=== PATIENT | female | born 1965 | race Hispanic/Latino ===

== ENCOUNTER 2020-12-29 14:26 | Emergency (ER) | payer SELFPAY ==
--- NOTE | ~2020-12-29 | XR_ITS ---
XR ankle LT min 3V, XR foot LT min 3V 12/29/2020 15:15 (accession [id number]), 12/29/2020 15:16 (accession [id number]) Indication: Left ankle and foot pain Procedure: 4 views of the left ankle and 4 views left foot Comparison: No prior studies for comparison. Findings: No fracture, subluxation or dislocation. Ankle mortise intact. Talar dome within normal boyce its. No focal soft tissue abnormality. No foreign bodies. Osteopenia. Lisfranc joint intact. Small de generative calcaneal enthesophyte. Impression: 1: No acute fracture. Reviewed, dictated and finalized at location A. Impression: 1: No acute fracture. Impression: 1: No acute fracture.
--- NOTE | ~2020-12-29 | US_ITS ---
US venous doppler [facility] DATE: 12/29/2020 18:52 INDICATION: Left leg swelling TECHNIQUE: Real-time and color flow imaging and Doppler analysis of the veins of the left leg COMPARISON: None FINDINGS: There is spontaneous and phasic flow and normal augmentation and color flow signal of the d eep veins of the left lower extremity. Normal compression of the deep veins. Left greater saphenous v ein is patent. IMPRESSION: No evidence of deep venous thrombosis of the left leg Reviewed, dictated and finalized at Location [facility]. Reviewed, dictated and finalized at location A.
[2020-12-29 14:58] VITALS: BP 128/99; PULSE 87; RESP 20; TEMP 36.8; O2SAT 98
--- NOTE | 2020-12-29 16:12 | ED.GENADULT ---
HPI - General Adult General Chief complaint: Extremity Injury, Lower Stated complaint: L ANKLE PAIN X4D Time Seen by Provider: 12/29/20 15:44 Source: patient Limitations: language barrier History of Present Illness HPI narrative: Patient is a 55 y/o female complaining of left ankle pain starting about 4 days ago. She rates her pain as 6/10. There is no pain radiation. She states that weight bearing worsens her pain. She hit her left 4th toe about 2 weeks ago, but did not have any cuts or scratches. Of note, patient is non Romanian speaking and interview is done with rn staff. Related Data Allergies Allergy/AdvReac Type Severity Reaction Status Date / Time No Known Allergies Allergy Unverified 12/29/20 15:25 Review of Systems Review of Systems: All systems reviewed & are unremarkable except as noted in HPI and below Musculoskeletal: Musculoskeletal: Reports as per HPI and Reports other (left ankle pain) [facility] Social History Social History Gender identity (if verbalized by the patient): Female Exam Const: General: no acute distress and well developed Orientation/consciousness: oriented to person, oriented to place, oriented to time and patient oriented x3 HENMT: Head: normocephalic Ears: external ears normal General nose exam: Normal external nose present Eyes: General: appearance normal, both eyes and all related structures Conjunctivae: conjunctivae normal Neck: Neck: normal visual inspection and full ROM Chest: Chest palpation & inspection: normal inspection of the chest and no tenderness Resp: Effort & Inspection: normal respiratory effort Auscultation: clear to auscultation bilaterally Cardio: Rate: regular rate Rhythm: regular rhythm GI: GI Palp: No abdominal tenderness and Yes Soft to palpation Skin: General skin exam: normal color, turgor normal and erythema (lateral apsect of left ankle) Neuro: General: oriented to person, oriented to place, oriented to time and patient oriented x3 Cognition (Neuro): normal cognition Extrem: General: normal to inspection, full ROM and no pedal edema Psych: Appearance: grossly normal Mental Status: mental status grossly normal Affect: normal affect Course Vital Signs Vital signs: Vital Signs Temperature 36.8 C 12/29/20 14:58 Pulse Rate 87 12/29/20 14:58 Respiratory Rate 20 12/29/20 14:58 Blood Pressure 128/99 H 12/29/20 14:58 Pulse Oximetry 98 12/29/20 14:58 Temperature 36.8 C 12/29/20 14:58 Pulse Rate 76 12/29/20 19:05 Respiratory Rate 18 12/29/20 19:05 Blood Pressure 162/89 H 12/29/20 19:05 Pulse Oximetry 100 12/29/20 19:05 Medical Decision Making Vital Signs Vital Signs: Vital Signs Temperature 36.8 C 12/29/20 14:58 Pulse Rate 87 12/29/20 14:58 Respiratory Rate 20 12/29/20 14:58 Blood Pressure 128/99 H 12/29/20 14:58 Pulse Oximetry 98 12/29/20 14:58 Temperature 36.8 C 12/29/20 14:58 Pulse Rate 76 12/29/20 19:05 Respiratory Rate 18 12/29/20 19:05 Blood Pressure 162/89 H 12/29/20 19:05 Pulse Oximetry 100 12/29/20 19:05 Lab Data Result diagrams: 12/29/20 17:03 12/29/20 17:03 Labs: Lab Results 12/29/20 12/29/20 12/29/20 Range/Units 17:03 17:03 17:03 WBC 4.1 L (4.5-10.0) K/mm3 RBC 4.48 (4.2-5.4) M/mm3 Hgb 11.4 L (12.0-15.0) g/dL Hct 36.4 L (37.0-47.0) % MCV 81.3 (80-100) fl MCH 25.4 L (26-34) pg MCHC 31.3 L (32-36) g/dl RDW 16.6 H (11.5-14.5) % Plt Count 327 (150-375) k/mm3 MPV 10.3 (7.4-10.4) fl Immature Gran % (Auto) 0.5 (0-0.5) % Neut % (Auto) 49.0 (45.5-73.1) % Lymph % (Auto) 33.7 (18.3-44.2) % [place] % (Auto) 14.3 H (2.6-8.5) % Eos % (Auto) 2.0 (0-4.4) % Baso % (Auto) 0.5 (0.2-1.2) % Lymph # (Auto) 1.37 (0.9-3.2) K/mm3 [place] # (Auto) 0.6 (0.1-0.6) K/mm3 Eos # (Auto) 0.1 (0-0.3) K/mm3
[2020-12-29 17:23] LABS: Basophils Percent Auto 0.5 % (0.2-1.2); Eosinophils Absolute Auto 0.1 K/mm3 (0-0.3); Hematocrit 36.4 % (37.0-47.0); Hemoglobin 11.4 g/dL (12.0-15.0); Immature Granulocyte Absolute 0.02 K/mm3 (0.00-0.031); Immature Granulocyte Percent A 0.5 % (0-0.5); Lymphocytes Absolute Auto 1.37 K/mm3 (0.9-3.2); Lymphocytes Percent Auto 33.7 % (18.3-44.2); Mean Corpuscular HGB Conc 31.3 g/dl (32-36); Mean Corpuscular Hemoglobin 25.4 pg (26-34); Mean Corpuscular Volume 81.3 fl (80-100); Mean Platelet Volume 10.3 fl (7.4-10.4); Monocytes Absolute Auto 0.6 K/mm3 (0.1-0.6); Monocytes Percent Auto 14.3 % (2.6-8.5); Platelet Count Result 327 k/mm3 (150-375); Red Blood Count 4.48 M/mm3 (4.2-5.4); Red Cell Distribution Width 16.6 % (11.5-14.5); White Blood Count 4.1 K/mm3 (4.5-10.0)
[2020-12-29 17:32] LABS: Uric Acid 3.1 mg/dL (2.5-7.5)
[2020-12-29 17:33] LABS: Anion Gap 10 mmol/L (8-16); Blood Urea Nitrogen 18 mg/dL (7-17); Calcium 9.2 mg/dL (8.4-10.2); Carbon Dioxide 28 mmol/L (22-30); Chloride 100 mmol/L (98-107); Estimated Glomerular Filt Rate > 60; Glucose 97 mg/dL (65-110); Sodium 138 mmol/L (137-145)
[2020-12-29] MEDS: KETOROLAC 15 MG/ML VIAL (*BKC) IV PUSH (18:00)
[2020-12-29 19:05] VITALS: BP 162/89; PULSE 76; RESP 18; O2SAT 100
== END 2020-12-29 20:19 | disposition home or self-care (01) ==
PROVIDERS: Emergency Provider Emergency Medicine
DX: L03.116 Cellulitis of left lower limb (principal)
CPT/HCPCS: 36415; 73610; 73630; 80048; 84550; 85025; 87040; 93971; 96365; 96375; 99284; J1885; J3370

== ENCOUNTER 2022-03-04 19:18 | Emergency (ER) | payer SELFPAY ==
[2022-03-04 19:21] VITALS: BP 167/91; PULSE 87; RESP 18; TEMP 36.2; O2SAT 100
[2022-03-04] MEDS: diphenhydrAMINE HCl INJ 50 MG/ML VIAL IV PUSH (20:36)
[2022-03-04] MEDS: FAMOTIDINE 20 MG/2 ML VIAL IV PUSH (20:36)
[2022-03-04] MEDS: methylPREDNISolone SOD SUCC 125 MG VIAL IV PUSH (20:36)
--- NOTE | 2022-03-04 21:04 | ED.SKABFB ---
HPI - Skin/Abscess/Foreign Bdy General Chief complaint: Skin/Abscess/Foreign Body Stated complaint: rash Time Seen by Provider: 03/04/22 20:14 History of Present Illness HPI narrative: This is a 56-year-old female with past medical history of rheumatoid arthritis, who presents emergency department complaining of urticaria. She states the only difference today was that she drank a can spiced coffee. She denies previous allergic reactions. She denies other new soaps, lotions, detergents. She complains of some hoarseness and presence of rash on the abdomen and chest. She denies difficulty breathing, vomiting, diarrhea or loss of consciousness. Related Data Allergies Allergy/AdvReac Type Severity Reaction Status Date / Time No Known Allergies Allergy Verified 03/04/22 20:12 Review of Systems Review of Systems: CONSTITUTIONAL: Denies fever, chills, or sweats. EYES: Denies visual changes, redness, or discharge. ENT: Hoarse voice denies rhinorrhea, congestion, sore throat, or otalgia. CARDIOVASCULAR: Denies chest pain, palpitations, or edema. RESPIRATORY: Denies cough or dyspnea. GASTROINTESTINAL: Denies abdominal pain, nausea, vomiting, or diarrhea. GENITOURINARY: Denies dysuria or hematuria. SKIN: Rash, itching MUSCULOSKELETAL: Denies back pain, joint pain, or myalgia. NEUROLOGIC: Denies headache, numbness, dizziness, or weakness. PSYCHIATRIC: Denies anxiety or depression. [facility] Past Medical History Medical History (Updated 03/05/22 @ 00:00 by Carin Delaney) Rheumatoid arthritis Social History Social History (Updated 03/04/22 @ 21:09 by Jovanni Valencia MD) Smoking status: Never smoker Alcohol intake: never Substance use: never Gender identity (if verbalized by the patient): Female Exam Narrative: GENERAL: Well-developed, well-nourished, and in no acute distress. HEAD: Normocephalic, atraumatic. EYES: PERRLA and EOMI. ENT: Somewhat hoarse voice, nares clear, no rhinorrhea or epistaxis. Mucous membranes moist. Oropharynx without swelling, tonsillar hypertrophy, exudate or other lesions. NECK: Supple. No adenopathy or masses. No carotid bruits or JVD CHEST: Clear to auscultation. No respiratory distress. No wheezes rales or rhonchi HEART: Regular rate and rhythm. No murmur heard. Normal peripheral pulses. ABDOMEN: Soft, nontender, nondistended, normal active bowel sounds. EXTREMITIES: Normal range of motion. No edema. SKIN: Urticarial rash noted over the abdomen and chest wall NEURO: No focal deficits. Alert and oriented x3. PSYCH: Normal mood and affect. Course Course Emergency Course: 21:42 - Reassessed patient, urticaria has significantly improved. The patient feels better. 22:28 - Reassessed patient. Urticaria appears to have resolved. Discussed recommendations for course of antihistamines and steroids. Discussed return emergency cautions including signs/symptoms of anaphylaxis. The patient voiced understanding is with the plan. All questions answered to her satisfaction. Vital Signs Vital signs: Vital Signs Temperature 97.2 F L 03/04/22 19:21 Pulse Rate 87 03/04/22 19:21 Respiratory Rate 18 03/04/22 19:21 Blood Pressure 167/91 H 03/04/22 19:21 Pulse Oximetry 100 03/04/22 19:21 Oxygen Delivery Room Air 03/04/22 19:21 Temperature 97.2 F L 03/04/22 19:21 Pulse Rate 81 03/04/22 21:54 Respiratory Rate 14 03/04/22 21:54 Blood Pressure 147/80 H 03/04/22 21:54 Pulse Oximetry 100 03/04/22 21:54 Oxygen Delivery Room Air 03/04/22 19:21 MDM - Skin/Abscess/Foreign Bdy MDM Narrative Medical decision making narrative: Plan: Antihistamines, steroids, observation Differential Diagnosis Differential diagnosis: Likely urticaria and other (Allergic reaction, other) Discharge Plan Discharge Clinical Impression: Urticaria Patient Disposition: Home, Self-Care Condition: Improved Instructions: Antibiotic Form, Urticaria (ED) Additional
[2022-03-04] MEDS: ACETAMINOPHEN 500 MG TABLET 1000 MG PO (21:47)
[2022-03-04 21:54] VITALS: BP 147/80; PULSE 81; RESP 14; O2SAT 100
== END 2022-03-04 22:54 | disposition home or self-care (01) ==
PROVIDERS: Emergency Provider Preventive Medicine Aerospace Medicine
DX: L50.9 Urticaria, unspecified (principal); M06.9 Rheumatoid arthritis, unspecified
CPT/HCPCS: 96374; 96375; 99284; A9270; J1200; J2930

== ENCOUNTER 2022-03-07 10:48 | Emergency (ER) | payer SELFPAY ==
[2022-03-07 11:20] VITALS: BP 154/85; PULSE 85; RESP 14; TEMP 36.8; O2SAT 99
--- NOTE | 2022-03-07 12:42 | ED.SKABFB ---
HPI - Skin/Abscess/Foreign Bdy General Chief complaint: Skin/Abscess/Foreign Body Stated complaint: rash Time Seen by Provider: 03/07/22 11:48 History of Present Illness HPI narrative: 56-year-old female here for evaluation of a diffuse rash. Patient states the rash came on about 5 days ago without obvious trigger. No new soaps medications or detergents or medications. States the rash is pruritic in nature, began with a patch on her stomach and has since spread to her back and the rest of her chest. She was seen in the ED and was given a course of steroids and Benadryl, did initially improve the symptoms but they have since come back. Patient denies any fevers, chills, painful rash, involvement of mucous membranes, difficulty breathing, throat tightness. Related Data Allergies Allergy/AdvReac Type Severity Reaction Status Date / Time No Known Allergies Allergy Verified 03/04/22 20:12 Review of Systems Review of Systems: Gen.: Denies fevers or chills Eyes: Denies eye pain or visual change ENT: Denies congestion Respiratory: Denies shortness of breath or cough CV: Denies chest pain or palpitations GI: Denies abdominal pain nausea, emesis or diarrhea denies burning, urgency, frequency or hematuria Musculoskeletal: Denies back pain or muscle pain Neuro: Denies numbness, tingling, weakness or focal weakness Skin: Reports rash Except as documented, all other systems reviewed and negative PMFSH Past Medical History Medical History Rheumatoid arthritis Social History Social History (Updated 03/04/22 @ 21:09 by Jovanni Valencia MD) Smoking status: Never smoker Alcohol intake: never Substance use: never Gender identity (if verbalized by the patient): Female Exam Narrative: APPEARANCE: Well appearing, no pain in distress, well-nourished. Head: Normocephalic and atraumatic. EYES: No irritation of the conjunctivo-. PERRLA/EOMI, conjunctivae clear NOSE: No nasal drainage EARS: External ear normal in appearance THROAT: Oropharynx is clear. Mucous membranes are moist. NECK: Supple. No adenopathy, no masses. RESPIRATORY: Airway patent, respirations nonlabored. Clear to auscultation bilaterally, no rales, rhonchi, wheezing. CARDIOVASCULAR: Regular rate and rhythm without murmurs, rubs, or gallops. ABDOMINAL: Normoactive bowel sounds. Soft, nontender, nondistended. No rebound tenderness or guarding. MUSCULOSKELETAL: Extremities are warm and well-perfused. Moves all extremities well. No edema. NEURO: Normal speech. No focal neurologic deficits. SKIN: Patient has numerous macules in a Victor[place] tree distribution on her back, maculopapular rash to abdomen. PSYCHIATRIC: Normal affect/mood. Course Vital Signs Vital signs: Vital Signs Temperature 98.2 F 03/07/22 11:20 Pulse Rate 85 03/07/22 11:20 Respiratory Rate 14 03/07/22 11:20 Blood Pressure 154/85 H 03/07/22 11:20 Pulse Oximetry 99 03/07/22 11:20 Temperature 98.2 F 03/07/22 11:20 Pulse Rate 85 03/07/22 11:20 Respiratory Rate 14 03/07/22 11:20 Blood Pressure 154/85 H 03/07/22 11:20 Pulse Oximetry 99 03/07/22 11:20 MDM - Skin/Abscess/Foreign Bdy MDM Narrative Medical decision making narrative: 56-year-old female here for evaluation of a pruritic rash that started on her anterior trunk and has since spread to her back, appears to be in a characteristic [place] tree pattern consistent with pitryiasis rosea. The rash is not painful and she has no involvement of the mucous membranes to suggest SJS or TENS. She has no systemic symptoms, and no difficulty breathing to suggest anaphylaxis. She previously responded to the prednisone so we will reinitiate steroid therapy and encouraged to continue Benadryl and Pepcid as needed for symptoms. She was given a pediatric nurse practitioner to follow-up with to confirm diagnosis. Patient was given reasons to return to the ED and she voi
[2022-03-07] MEDS: diphenhydrAMINE HCl CAP 25 MG CAPSULE PO (12:58)
[2022-03-07] MEDS: FAMOTIDINE 20 MG TABLET 40 MG PO (12:59)
== END 2022-03-07 13:15 | disposition home or self-care (01) ==
PROVIDERS: Emergency Provider Emergency Medicine
DX: L42 Pityriasis rosea (principal); M06.9 Rheumatoid arthritis, unspecified
CPT/HCPCS: 96372; 99283; A9270; J1100

== ENCOUNTER 2024-10-05 10:56 | Emergency (ER) | payer SELFPAY ==
[2024-10-05 10:58] VITALS: BP 159/74; PULSE 88; RESP 18; TEMP 36.6; O2SAT 100
--- OUTSIDE RECORDS SUMMARY | 2024-10-05 10:59 | XMS_ITS | Encounter Summary ---
Author Organization [facility] Healthcare Address [address] [place] [address] Care Team Providers Care State Federal Relations Deputy Director Name Role Phone No, Physician Primary Care Provider [phone] Khushbu Gutierres MD Unavailable Encounter Details Date Type Department Care Team (Late st Contact Info) Description 02/22/2023 Orders Only [facility] Health Information Management [address] [place] [address] Scanning, Provider Social History Tobacco Use Types Packs/Day Years Used Date Smoking Tobacco: Former Cigarettes 0.3 20 1 979 - 1998 Smokeless Tobacco: Never Alcohol Use Standard Drinks/Week Comments Not Currently 0 (1 standard drink = 0.6 oz pur e alcohol) AUDIT-C Answer Date Recorded Frequency of Alcohol Consumption Never 01/29/2020 Average Number of Drinks Not on file 020 Frequency of Binge Drinking Not on file 01/14 Comments No Sex and Gender Information Value Date Recorded Sex Assigned at Not on file 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 Gender Identity Not on file Sexual Orientation Not on file documented as of this encounter Plan of Treatment Not on file documented as of this encounter Procedures Procedure Name Priority Date/Time Associated Diagnosis Comments SCAN - OTHER ORDERS 02/22/2023 documented in this encounter Results * SCAN - OTHER ORDERS (02/22/2023) us Provider Scanning Final Result documented in this encounter Visit Diagnoses Not on filedocumented in this encounter Care Teams State Federal Relations Deputy Director Relationship Specialty Start Date End Date No, Physician PCP - General 08/25/18 Khushbu Gutierres MD 06/02/18 documented as of this encounter
--- OUTSIDE RECORDS SUMMARY | 2024-10-05 10:59 | XMS_ITS | Clinical Summary ---
Author Organization [facility] Address [address] [place] [address] Care Team Providers Care Silver Lap Machine Tender Name Role Phone de Gregory De La Vega Unavailable Unknown, Provider Primary Care Provider Unavaila ble Source Comments [facility],non-owned Affiliates and Associated Physician Practices is amultiple site organization consisting of ambulatory clinics and hospital sitesin [place], [place] and [place]. This disclosure is being madepursuant to the Care Everywhere program and may not contain all information available regarding this patient. Last updated 18.[facility] VerbalizeIt Allergies No known active allergies Medications * Be aware that medications may not be up to date on this document. Alwaysverify current medications with the patient. lisinopril (Prinivil; Zestril) 20 MG tablet TOME EDDIE TABLETA POR V A ORAL A DIARIO 3 Active hydroxychloroqu ine (Plaquenil) 200 MG tablet Take 1 (one) tablet by mouth once daily 3 Active polyethylene glycol (Gavilyte-C) 240 g solution Drink half of prep solution at 5pm the night before colonoscopy. Finish the prep at 4am the day of test. 4000 mL 3 Active Additional Information Patient not taking.Reported on 04/10/2024 esomeprazole (NexIUM) 20 MG capsule Take 1 (one) capsule by mouth daily before breakfast Active ciclopirox (Penlac) 8 % solutionIndicat ions:Onychomyco sis of Toenails Apply to nail daily, remove with nail divehi remover every 7 days. 30 days supply. Reasons: Fungal Toenail Disease 6.6 mL 5 4 Active Active Problems Problem Noted Date Diagnosed Date Localized chronic periodontitis 04/09/2024 Long-term use of Plaquenil 09/18/2018 Overview (04/09/2024): Last Assessment & Plan: Letter to corn shucker. Rheumatoid arthritis 09/18/2018 Overview (04/09/2024): Last Assessment & Plan: On plaquenil x 5 years. No e/o plaquenil related toxicity on dilated eye exam today. OCT 5 line macula was normal without ellipsoid zone loss, normal HVF 10-2 today. Return for DFE and repeat OCT and HVF annually per AAO guidelines. Letter to corn shucker today. Social History Tobacco Use Types Packs/Day Years Used Date Smoking Tobacco: Never Smokeless Tobacco: Never Tobacco Cessation:Counseling Given: Not Answered Alcohol Use Standard Drinks/Week Comments Not Currently 0 (1 standard drink = 0.6 oz pur e alcohol) Comments No Sex and Gender Information Value Date Recorded Sex Assigned at Not on file Legal Sex Female 8:30 AM CDT Gender Identity Not on file Sexual Orientation Not on file Last Filed Vital Signs Vital Sign Reading Time Taken Comments Blood Pressure 155/94 04/22/2023 12:30 PM ASBESTOS SIDING INSTALLER Pulse 68 04/22/2023 12:30 PM ASBESTOS SIDING INSTALLER Temperature 36.6 C (97.8 F) 04/22/2023 12:30 PM ASBESTOS SIDING INSTALLER Respiratory Rate 26 04/22/2023 12:3 0 PM ASBESTOS SIDING INSTALLER Oxygen Saturation 99% 04/22/2023 12: 30 PM ASBESTOS SIDING INSTALLER Inhaled Oxygen Concentration - - Weight 77.4 kg (170 lb 11.2 oz) 04/22/2023 9:32 AM ASBESTOS SIDING INSTALLER Height 167.6 cm (5' 6 ) 04/22/2023 9:32 AM ASBESTOS SIDING INSTALLER Body Mass Index 27.55 04/22/2023 9:32 AM ASBESTOS SIDING INSTALLER Plan of Treatment Upcoming Encounters Date Type Department Care Team (Late st Contact Info) Description 10/09/2024 1:30 PM CDT Office Visit [facility] - Dermatology [address] [place] [address] [place] [id number] Samuel Chaney PA-C [address] [place] [address] 11/27/2024 2:15 PM CDT Office Visit [facility] - Ophthalmology [address] [place] [address], [place] [address] Walter Powell MD [address] [place] [address] DE[place] [address] Health Maintenance Due Date Last Done Comments COLOGUARD (AGES 45-75) - COLON CA SCREENING 1965 CT COLONOGRAPHY - COLON CA SCREENING 1965 FIT - COLON CA SCREENING 1965 FLEX SIG - COLON CA SCREENING 1965 LIPID TESTING 1965 PAP SMEAR 1963 HIV SCREENING 1978 HEPATITIS C SCREENING 05/05/1981 DTAP/TDAP/TD VACCINES (1 - Tdap) 1982 PNEUMOCOCCAL VACCINE 50+ (1 of 1 - PCV) 2013 ZOSTER VACCINE (1 of 2) 2013 COVID-19 VACCINE (3 - season) 2024 08/20/2020, 07/23/2020 SCREENING FOR DIABETES 04/10/2024 08/27/2014 DEPRESSION SCREENING 05/16/2024 INFLUENZA VACCINE (Season Ended) 2025 MAMMOGRAM 06/21/2025 06/21/2023, 02/10/2023, 05/29/2021, Additional history exists COLON MONITORING 04/22/2033 04/22/2023, 04/22/2023 COLONOSCOPY - COLON CA SCREENING 04/22/2033 04/22/2023, 04/22/2023 Colorectal Cancer Screening 04/22/2033 Respiratory Syncytial Virus (RSV) Vaccine Pt: or over 60 yrs (1 - 1-dose 75+ series) 2038 HEPATITIS B VACCINE Aged Out No longe r eligible based on patient's age to complete this topic HIB VACCINE Aged Out No longer eligi ble based on patient's age to complete this topic HPV VACCINE Aged Out No longer eligi ble based on patient's age to complete this topic MENINGOCOCCAL (Group B) VACCINE SHARED DECISION-MAKING Aged Out No longer eligible based on patient's age to complete this topic MENINGOCOCCAL GROUPS A/C/Y/W VACCINE Aged Out No longer eligible based on patient's age to complete this topic Procedures Procedure Name Priority Date/Time Associated Diagnosis Comments ENDOSCOPY, COLON, SCREENING Routine 04/22/2023 11:14 AM ASBESTOS SIDING INSTALLER MAMMO BILAT SCREENING Routine 04/20/2017 10:40 AM ASBESTOS SIDING INSTALLER Visit for screening mammogram COMPREHENSIVE METABOLIC PANEL STAT 08/27/2014 2:21 PM CDT from Last 3 Months or Most Recently Relevant to Health Maintenance Results * ENDOSCOPY, COLON, SCREENING (04/22/2023 11:14 AM ASBESTOS SIDING INSTALLER) Report Endoscopy POC Endoscopy Department Report __ _ Patient Name: Kaylin Amin Procedure Date: 04/22/2023 11:14 AM Date of : 1965 Classification: Outpatient Gender: Female Ethnicity: or Race: White __ _ Providers: Hussain Melvin MD Referring MD: Gregory Renae Procedure: Colonoscopy Indications: Screening for colorectal malignant neoplasm, This is the patient's first colonoscopy Medications: Monitored Anesthesia Care Description of Procedure: Pre-Anesthesia Assessment: - Prior to the procedure, a History and Physical was performed, and patient medications and allergies were reviewed. The patient's tolerance of previous anesthesia was also reviewed. The risks and benefits of the procedure and the sedation options and risks were discussed with the patient. All questions were answered, and informed consent was obtained. Prior Anticoagulants: The patient has taken no anticoagulant or antiplatelet agents. ASA Grade Assessment: II - A patient with mild systemic disease. After reviewing the risks and benefits, the patient was deemed in satisfactory condition to undergo the procedure. After I obtained informed consent, the scope was passed under direct vision. Throughout the procedure, the patient's blood pressure, pulse, and oxygen saturations were monitored continuously. The Colonoscope was introduced through the anus and advanced to the cecum, identified by appendiceal orifice and ileocecal valve. The colonoscopy was performed without difficulty. The patient tolerated the procedure well. The quality of the bowel preparation was excellent. Findings: Two diminutivve polyps were found in the rectum. The polyps were 2 to 3 mm in size and may be hyyperplastic. These polyps were removed with a jumbo cold forceps. Resection and retrieval were complete. No other significant abnormalities were identified in a careful examination of the remainder of the colon. No mass or large polyps seen. Internal hemorrhoids were found during retroflexion. The hemorrhoids were small. Estimated Blood Loss: Estimated blood loss was minimal. Complications: No immediate complications. Impression: - Two 2 to 3 mm polyps in the rectum, removed with a jumbo cold forceps. Resected and retrieved. - Internal hemorrhoids. Recommendation: - Await pathology results. - Repeat colonoscopy in 7-10 years for surveillance. - Return to referring physician as previously scheduled. - Resume previous diet. - Continue present medications. Attending Participation: I personally performed the entire procedure. Procedure Code(s): --- Professional --- 66535, Colonoscopy, flexible; with biopsy, single or multiple Diagnosis Code(s): --- Professional --- Z12.11, Encounter for screening for malignant neoplasm of colon D12.8, Benign neoplasm of rectum K64.8, Other hemorrhoids CPT copyright 2021 [employer]. All rights reserved. The codes documented in this report are preliminary and upon material assistant review may be revised to meet current compliance requirements. Hussain Melvin MD 04/22/2023 12:11:21 PM Note Initiated On: 04/22/2023 11:14 AM Number of Addenda: 0 [facility] [address] [place] [address] [facility] [employer] 04/22/2023 11:1 4 AM ASBESTOS SIDING INSTALLER us Hussain Melvin MD GI PROCEDURE ORDERABLES Edite d Result - Final [facility] [employer] * CHAMP SCREENING DIGITAL IMAGE BILATERAL G0202 (04/20/2017 10:40 AM ASBESTOS SIDING INSTALLER) Anatomical Region Laterality Modality Breast Bilateral Mammography 04/25/2017 9:03 AM ASBESTOS SIDING INSTALLER Impressions 04/25/2017 10:33 AM ASBESTOS SIDING INSTALLER No mammographic evidence of malignancy in either breast. ASSESSMENT: BIRADS Category 1: Negative mammogram. RECOMMENDATION: Bilateral screening mammogram in one year. Thank you for allowing us to participate in the care of your patient. [facility] Breast [facility] utilizes [employer] as a reminder system to notify patients of their next recommended mammogram. I, Nelly Saldivar, have personally reviewed the images and I agree with this report. Narrative 04/25/2017 10:33 AM ASBESTOS SIDING INSTALLER EXAMINATION: Digital screening mammogram on 04/20/2017. Low-dose full-field digital breast tomosynthesis examination was performed with synthetic 2D images and 3D acquisitions. Computer assisted detection was utilized. PRIOR: Prior mammogram dated 11/18/2015. BREAST PARENCHYMAL DENSITY: The breasts are heterogeneously dense, which may obscure small masses. RISK ASSESSMENT CALCULATION: Based on the information provided by your patient, her lifetime risk of breast cancer is average (<15%). Additional quantitative risk model data and patient history details have been scanned as a document/letter in [facility] electronic medical record (media tab). Please note this information is only as accurate as the data entered by the patient. FINDINGS: No suspicious masses, areas of architectural distortion or microcalcifications are evident on synthetic 2D mammogram or tomosynthesis images. There has been no significant interval change since the prior examination. us Ester Brennan MD MAMMO ORDERABLES Final Resu lt * (ABNORMAL) COMPREHENSIVE METABOLIC PANEL (08/27/2014 2:21 PM CDT) BUN 11 7 - 26 mg/dL [facility] Creatinine 0.5(L) 0.6 - 1.2 mg/dL [facility] Sodium 142 136 - 145 mmol/L [facility] Potassium 3.4(L) 3.5 - 4.5 mmol/L [facility] Chloride 103 98 - 107 mmol/L [facility] CO2 24 22 - 29 mmol/L [facility] Glucose 84 70 - 115 mg/dL [facility] Calcium 9.9 8.4 - 10.2 mg/dL [facility] Protein Total 9.4(H) 6.0 - 8.3 g/dL [facility] Albumin 4.0 3.4 - 5.0 g/dL [facility] Bilirubin Total 0.8 0.2 - 1.2 mg/dL [facility] Alkaline Phosphatase 88 40 - 150 Units/L [facility] ALT 22 0 - 55 Units/L [facility] AST 24 5 - 34 Units/L [facility] Anion Gap 18 8 - 18 [facility] BUN/Creatinine Ratio 22 7 - 23 [facility] Osmolality Calculated 278 270 - 300 mOsm/kg [facility] Albumin/Globulin Ratio 0.7(L) 1.1 - 2.3 [facility] eGFR >60 >60 mL/min/1.7 3 m2 [facility] Blood specimen (specimen) BLOOD SPECIMEN / Unknown 08/27/2014 2:21 PM CDT 08/27/2014 2:26 PM CDT us Sharon Swenson MD LAB - CHEMISTRY ORDERABLES Final Result [facility] [address] [place], [place] [address] [phone] from Last 3 Months or Most Recently Relevant to Health Maintenance Care Teams Silver Lap Machine Tender Relationship Specialty Start Date End Date Unknown, Provider PCP - General 04/10/24 de Yolette, [facility] [address] [place] [address] Creative Designer 04/20/17
--- OUTSIDE RECORDS SUMMARY | 2024-10-05 10:59 | XMS_ITS | Clinical Summary ---
Author Organization [facility] Healthcare Address [address] [place] [address] Care Team Providers Care Waxing Machine Operator Helper Name Role Phone No, Physician Primary Care Provider [phone] Khushbu Gutierres MD Unavailable Allergies No known active allergies Medications predniSONE (DELTASONE) 2.5 mg tabletIndicatio ns:autoimmune disease Take 2.5 mg by mouth daily before breakfast Active hydroxychloroqu ine (PLAQUENIL) 200 mg tabletIndicatio ns:Systemic Lupus Erythematosus,R A Take 200 mg by mouth daily Active esomeprazole DR (NexIUM) 40 mg capsuleIndicati ons:Treatment of Non-Bleeding Gastric Disorder Take 40 mg by mouth 2 (two) times a day Active acetaminophen (TYLENOL) 500 mg tablet Take 500 mg by mouth every 6 (six) hours as needed for pain Active psyllium husk (METAMUCIL ORAL) Take 1 Dose by mouth daily as needed Active cyanocobalamin (Vitamin B-12) 1,000 mcg sublingual tablet Take 1,000 mcg by mouth daily before breakfast Active oxyCODONE (ROXICODONE) 5 mg immediate release tabletIndicatio ns:Pain Take 1 tablet (5 mg total) by mouth every 4 (four) hours as needed for pain for up to 8 doses 8 tablet 9 Active Active Problems Problem Noted Date Diagnosed Date Rheumatoid arthritis 09/18/2018 Assessment & Plan (01/29/2020 4:26 PM CDT): On plaquenil x 5 years. No e/o plaquenil related toxicity on dilated eye exam today. OCT 5 line macula was normal without ellipsoid zone loss, normal HVF 10-2 today. Return for DFE and repeat OCT and HVF annually per AAO guidelines. Letter to production engineer track today. Assessment & Plan (09/18/2018 4:09 PM CDT): On plaquenil x 4 years. Patient has two MRN's so this chart needs to be merged with her existing chart. No e/o plaquenil related toxicity on dilated eye exam today. OCT 5 line macula was normal without ellipsoid zone loss today. Will get updated HVF 10-2 at next visit in 1 year, at which time we will repeat OCT and HVF annually per AAO guidelines. Long-term use of Plaquenil 09/18/2018 Assessment & Plan (09/18/2018 4:09 PM CDT): Letter to production engineer track. Cataract, nuclear sclerotic, both eyes 9 Assessment & Plan (01/29/2020 4:26 PM CDT): NVS, follow Assessment & Plan (09/18/2018 4:09 PM CDT): NVS, SRx given. Mammogram abnormal 07/17/2018 Resolved Problems Problem Noted Date Diagnosed Date Resolved Date Drusen of macula, right 09/18/201801/14 Assessment & Plan (09/18/2018 4:12 PM CDT): Nasal to fovea, not concerning for plaquenil related maculopathy. Follow. Surgical History Surgery Date Site/Laterality Comments HYSTERECTOMY HYSTERECTOMY Medical History Medical History Date Comments Frequent headaches Lupus Rheumatoid arthritis (HCC) Family History Medical History Relation Name Comments Anesthesia problems Neg Hx Social History Tobacco Use Types Packs/Day Years [...] on file Legal Sex Female 9:18 AM SPECIAL SERVICE REPRESENTATIVE Gender Identity Not on file Sexual Orientation Not on file Obstetrics History Last Filed Vital Signs Vital Sign Reading Time Taken Comments Blood Pressure 162/86 08/24/2018 3:20 PM CDT Pulse 68 08/24/2018 3:20 PM CDT Temperature 36.7 C (98.1 F) 08/24/2018 2:40 PM CDT Respiratory Rate 13 08/24/2018 7:05 AM CDT Oxygen Saturation 99% 08/24/2018 3:20 PM CDT Inhaled Oxygen Concentration - - Weight 76.7 kg (169 lb) 09/06/2018 3:45 PM CDT Height 171.5 cm (5' 7.5 ) 08/18/2018 1:00 PM CDT Body Mass Index 26.08 08/18/2018 1:00 PM CDT Plan of Treatment Health Maintenance Due Date Last Done Comments Colon Cancer Screening-Colonoscopy 1965 Depression Screening 1965 Hepatitis C Screening 1965 DTaP/Tdap/Td Vaccine (1 - Tdap) 1974 Hepatitis B Screening 1981 Regular Well Visit/Exam 18-64 1981 Pneumococcal vaccine <65 (1 of 2 - PCV) 1982 Zoster Vaccine (1 of 2) 1982 Covid-19 Vaccine (4 - 2023-2 5 season) 2024 08/14/2021, 08/20/2020, 07/23/2020 Breast Cancer Screening-Mammogram 06/21/2024 06/21/2023, 05/29/2021, 05/30/2020, Additional history exists Influenza Vaccine (Season Ended) 2025 03/07/20 20 Procedures Procedure Name Priority Date/Time Associated Diagnosis Comments SCREENING MAMMOGRAM BILATERAL W TEO Schedule Routine, Read Routine (OP Routine) 06/21/2023 10:20 AM SPECIAL SERVICE REPRESENTATIVE Screening mammogram, encounter for from Last 3 Months or Most Recently Relevant to Health Maintenance Results * Screening Mammogram Bilateral W Teo (06/21/2023 10:20 AM SPECIAL SERVICE REPRESENTATIVE) Anatomical Region Laterality Modality Breast Bilateral Mammography Narrative 06/22/2023 11:30 AM SPECIAL SERVICE REPRESENTATIVE Mammogram Technique: Bilateral Digital Breast Tomosynthesis, Bilateral C-view 2D Screening mammogram. Views obtained: bilateral craniocaudal and bilateral mediolateral oblique. Computer Aided Detection was performed. Mammogram Findings: The present examination has been compared to prior imaging studies performed at [facility] on 06/12/2019, 05/30/2020 and 05/29/2021. There are scattered areas of fibroglandular density. There is no suspicious abnormality in either breast. Impression: There is no mammographic evidence of malignancy. Annual screening mammography is recommended. OVERALL FINAL ASSESSMENT: BI-RADS CATEGORY 1: Negative. Procedure Note Dimple Nguyen MD - 06/22/2023 Mammogram Technique: Bilateral Digital Breast Tomosynthesis, Bilateral C-view 2D Screening mammogram. Views obtained: bilateral craniocaudal and bilateral mediolateral oblique. Computer Aided Detection was performed. Mammogram Findings: The present examination has been compared to prior imaging studies performed at [facility] on06/12/2019, 05/30/2020 and 05/29/2021. There are scattered areas of fibroglandular density. There is no suspicious abnormality in either breast. Impression: There is no mammographic evidence of malignancy. Annual screening mammography is recommended. OVERALL FINAL ASSESSMENT: BI-RADS CATEGORY 1: Negative. us Self Screening Mammogram IMG MAMMO PROCEDURES Fi nal Result from Last 3 Months or Most Recently Relevant to Health Maintenance Care Teams Waxing Machine Operator Helper Relationship Specialty Start Date End Date No, Physician PCP - General 08/25/18 Khushbu Gutierres MD 06/02/18
--- OUTSIDE RECORDS SUMMARY | 2024-10-05 10:59 | XMS_ITS | Patient Health Record ---
Author Organization [facility] Address [address] [place], [place] [address] Care Team Providers Care Oil Well Engineer Name Role Phone Magda Miya Primary Care Provider [phone] Allergies No Known Allergies Reason For Referral No Information Immunizations Vaccine Route Administration Date Status Comme nts SARS-COV-2 (COVID-19) Vaccine 100mcg/0.5mL IM Intramuscular 07/23/2020 Administered SARS-COV-2 (COVID-19) Vaccine 100mcg/0.5mL IM Intramuscular 08/20/2020 Administered Social History Sex Assigned At : Social History Observation Description Sex Assigned At Female Problems Problem Type SNOMED Code ICD Code Onset Dates Problem Status W/U Status Risk Notes Problem Localized chronic periodontitis (585177312) Chronic periodontitis , localized, severe (K05.313) Active confirmed Problem Encounter for dental exam and cleaning w/o abnormal findings (Z01.20) Active confirmed Plan Of Treatment No Information Insurance Providers Payer Name Payer Address Payer Phone Subscriber Number Group Number Insured Name Patient Relationship to Insured Coverage Start Date Coverage End Date Self Pay - Slide Fee (Inacti ve 2022) LEVEL B Kaylin Coelho Self - patient is the insured 2021 Medical (General) History Medical History History ICD Code SLE ( approved by specialist ) letter pr ovided entered at the [employer]
--- OUTSIDE RECORDS SUMMARY | 2024-10-05 10:59 | XMS_ITS | Referral Summary ---
Author Organization [facility] Healthcare Address [address] [place] [address] Care Team Providers Care Psychometrician Name Role Phone No, Physician Primary Care Provider [phone] Khushbu Gutierres MD Unavailable Allergies No known [...] HVF annually per AAO guidelines. Letter to school standards coach today. Assessment & Plan (09/18/2018 4:09 PM [...] Plan (09/18/2018 4:09 PM CDT): Letter to school standards coach. Cataract, nuclear sclerotic, both eyes 9 Assessment & Plan (01/29/2020 4:26 PM CDT): NVS, follow Assessment & Plan (09/18/2018 4:09 PM CDT): NVS, SRx given. Mammogram abnormal 07/17/2018 Resolved Problems Problem Noted Date Diagnosed Date Resolved Date Drusen of macula, right 09/18/201801/14 Assessment & Plan (09/18/2018 4:12 PM CDT): Nasal to fovea, not concerning for plaquenil related maculopathy. Follow. Social History Tobacco Use Types Packs/Day Years [...] on file Legal Sex Female 9:18 AM SURGICAL COORDINATOR Gender Identity Not on file Sexual Orientation [...] 08/18/2018 1:00 PM CDT Plan of Treatment Not on file Procedures Procedure Name Priority Date/Time Associated Diagnosis Comments SCREENING MAMMOGRAM BILATERAL W TEO Schedule Routine, Read Routine (OP Routine) 06/21/2023 10:20 AM SURGICAL COORDINATOR Screening mammogram, encounter for from Last 3 Months or Most Recently Relevant to Health Maintenance Results * Screening Mammogram Bilateral W Teo (06/21/2023 10:20 AM SURGICAL COORDINATOR) Anatomical Region Laterality Modality Breast Bilateral Mammography Narrative 06/22/2023 11:30 AM SURGICAL COORDINATOR Mammogram Technique: Bilateral Digital Breast Tomosynthesis, Bilateral C-view 2D Screening mammogram. Views obtained: bilateral craniocaudal and bilateral mediolateral oblique. Computer Aided Detection was performed. Mammogram Findings: The present examination has been compared to prior imaging studies performed at [facility] on 06/12/2019, 05/30/2020 [...] compared to prior imaging studies performed at [facility] on06/12/2019, 05/30/2020 and [...] Recently Relevant to Health Maintenance Care Teams Psychometrician Relationship Specialty Start Date End Date No, Physician PCP - General 08/25/18 hKushbu Gutierres MD 06/02/18
--- OUTSIDE RECORDS SUMMARY | 2024-10-05 10:59 | XMS_ITS | Clinical Summary ---
Author Organization [facility] Address [address] [place] [address] Phone Care Team Providers Care Head Pastry Chef Name Role Phone Unavailable Primary Care Provider Unavailabl e Allergies No known active allergies Medications HYDROXYCHLOROQUI NE SULFATE (PLAQUENIL ORAL) Take by mouth. Active calcium acetate (PHOSLO) 667 mg Capsule Take 667 mg by mouth 3 times daily with meals. Active predniSONE (DELTASONE) 1 mg tablet Take 1 mg by mouth daily. Active omeprazole (PriLOSEC) 20 mg Capsule, Delayed Release(E.C.) Take 20 mg by mouth daily. Active esomeprazole (NexIUM) 20 mg Capsule, Delayed Release(E.C.) Take 20 mg by mouth daily before breakfast. Active Social History Tobacco Use Types Packs/Day Years Used Date Smoking Tobacco: Never Alcohol Use Standard Drinks/Week Comments No 0 (1 standard drink = 0.6 oz pur e alcohol) Comments Unknown Sex and Gender Information Value Date Recorded Sex Assigned at Not on file Legal Sex Female 9:26 AM CDT Gender Identity Not on file Sexual Orientation Not on file Last Filed Vital Signs Vital Sign Reading Time Taken Comments Blood Pressure 116/75 12/12/2015 2:29 PM CDT Pulse 89 12/12/2015 2:29 PM CDT Temperature 37.3 C (99.2 F) 12/12/2015 2:17 PM CDT Respiratory Rate 20 12/12/2015 2:29 PM CDT Oxygen Saturation 98% 12/12/2015 2:29 PM CDT Inhaled Oxygen Concentration - - Weight 57.6 kg (127 lb) 12/12/2015 1:00 PM CDT Height 170.2 cm (5' 7 ) 12/12/2015 1:00 PM CDT Body Mass Index 19.89 12/12/2015 1:00 PM CDT Plan of Treatment Health Maintenance Due Date Last Done Comments DTAP/TDAP/TD VACCINES (1 - Tdap) 1982 HPV/Cotest (21-29) 1984 CERVICAL CANCER SCREENING 1993 HPV/Cotest (30-65) 1993 PAP SMEAR 1993 BREAST CANCER SCREENING 2003 COLORECTAL SCREENING 2008 Colorectal Cancer Screening 2008 FIT-DNA Q 3 years 2008 FIT/FOBT Q 1 year 2008 Flex Sig/CT Colonography Q 5 years 2008 ZOSTER VACCINE (1 of 2) 2013 INFLUENZA VACCINE (#1) 2023 RSV VACCINE (60+ or ) (1 - 1-dose 75+ series) 2038 Advance Directives For more information, please contact: [phone] * Full Code (Latest Code Status on File) Date Activated Date Inactivated Comments 12/12/2015 12:59 PM 12/12/2015 4:47 PM
--- OUTSIDE RECORDS SUMMARY | 2024-10-05 12:44 | XMS_ITS | Referral Summary ---
Author Organization [facility] Healthcare Address [address] [place] [address] Care Team Providers Care Spoke Maker Name Role Phone No, Physician Primary Care Provider [phone] Khushbu Gutierres MD Unavailable Allergies No known [...] HVF annually per AAO guidelines. Letter to special population paraprofessional today. Assessment & Plan (09/18/2018 4:09 PM [...] Plan (09/18/2018 4:09 PM CDT): Letter to special population paraprofessional. Cataract, nuclear sclerotic, both eyes 9 Assessment [...] on file Legal Sex Female 9:18 AM SOFT SUGAR SUPERVISOR Gender Identity Not on file Sexual Orientation [...] Read Routine (OP Routine) 06/21/2023 10:20 AM SOFT SUGAR SUPERVISOR Screening mammogram, encounter for from Last 3 Months or Most Recently Relevant to Health Maintenance Results * Screening Mammogram Bilateral W Teo (06/21/2023 10:20 AM SOFT SUGAR SUPERVISOR) Anatomical Region Laterality Modality Breast Bilateral Mammography Narrative 06/22/2023 11:30 AM SOFT SUGAR SUPERVISOR Mammogram Technique: Bilateral Digital Breast Tomosynthesis, Bilateral C-view 2D Screening mammogram. Views obtained: bilateral craniocaudal and bilateral mediolateral oblique. Computer Aided Detection was performed. Mammogram Findings: The present examination has been compared to prior imaging studies performed at [facility] on 06/12/2019, 05/30/2020 and [...] to prior imaging studies performed at [facility] on06/12/2019, 05/30/2020 and 05/29/2021. [...] Recently Relevant to Health Maintenance Care Teams Spoke Maker Relationship Specialty Start Date End Date No, Physician PCP - General 08/25/18 Khushbu Gutierres MD 06/02/18
--- OUTSIDE RECORDS SUMMARY | 2024-10-05 12:44 | XMS_ITS | Clinical Summary ---
Author Organization [facility] Healthcare Address [address] [place] [address] Care Team Providers Care Timber Treatment Plant Operator Name Role Phone No, Physician Primary Care Provider [phone] Khushbu Gutierres MD Unavailable Allergies No known [...] HVF annually per AAO guidelines. Letter to vice president lending today. Assessment & Plan (09/18/2018 4:09 PM [...] Plan (09/18/2018 4:09 PM CDT): Letter to vice president lending. Cataract, nuclear sclerotic, both eyes 9 Assessment [...] on file Legal Sex Female 9:18 AM BLUE PRINTS TRIMMER Gender Identity Not on file Sexual Orientation [...] Read Routine (OP Routine) 06/21/2023 10:20 AM BLUE PRINTS TRIMMER Screening mammogram, encounter for from Last 3 Months or Most Recently Relevant to Health Maintenance Results * Screening Mammogram Bilateral W Teo (06/21/2023 10:20 AM BLUE PRINTS TRIMMER) Anatomical Region Laterality Modality Breast Bilateral Mammography Narrative 06/22/2023 11:30 AM BLUE PRINTS TRIMMER Mammogram Technique: Bilateral Digital Breast Tomosynthesis, Bilateral C-view 2D Screening mammogram. Views obtained: bilateral craniocaudal and bilateral mediolateral oblique. Computer Aided Detection was performed. Mammogram Findings: The present examination has been compared to prior imaging studies performed at [facility] on 06/12/2019, 05/30/2020 [...] compared to prior imaging studies performed at [facility] on06/12/2019, 05/30/2020 and [...] Recently Relevant to Health Maintenance Care Teams Timber Treatment Plant Operator Relationship Specialty Start Date End Date No, Physician PCP - General 08/25/18 Khushbu Gutierres MD 06/02/18
--- OUTSIDE RECORDS SUMMARY | 2024-10-05 12:44 | XMS_ITS | Clinical Summary ---
Author Organization [facility] Address [address] [place] [address] Care Team Providers Care Technology Officer Name Role Phone de Gregory De La Vega Unavailable Unknown, Provider Primary Care Provider Unavaila ble Source Comments [facility],non-owned Affiliates and Associated Physician Practices is amultiple site organization consisting of ambulatory clinics and hospital sitesin [place], [place], [place] and [place]. This disclosure is being madepursuant to the Care Everywhere program and may not contain all information available regarding this patient. Last updated 18.[facility] [employer] Allergies No known active allergies Medications * [...] Apply to nail daily, remove with nail english remover every 7 days. 30 days supply. Reasons: Fungal Toenail Disease 6.6 mL 5 4 Active Active Problems Problem Noted Date Diagnosed Date Localized chronic periodontitis 04/09/2024 Long-term use of Plaquenil 09/18/2018 Overview (04/09/2024): Last Assessment & Plan: Letter to associate brand manager. Rheumatoid arthritis 09/18/2018 Overview (04/09/2024): Last Assessment & Plan: On plaquenil x 5 years. No e/o plaquenil related toxicity on dilated eye exam today. OCT 5 line macula was normal without ellipsoid zone loss, normal HVF 10-2 today. Return for DFE and repeat OCT and HVF annually per AAO guidelines. Letter to associate brand manager today. Social History Tobacco Use Types Packs/Day [...] Comments Blood Pressure 155/94 04/22/2023 12:30 PM ENGLISH PROFESSOR Pulse 68 04/22/2023 12:30 PM ENGLISH PROFESSOR Temperature 36.6 C (97.8 F) 04/22/2023 12:30 PM ENGLISH PROFESSOR Respiratory Rate 26 04/22/2023 12:3 0 PM ENGLISH PROFESSOR Oxygen Saturation 99% 04/22/2023 12: 30 PM ENGLISH PROFESSOR Inhaled Oxygen Concentration - - Weight 77.4 kg (170 lb 11.2 oz) 04/22/2023 9:32 AM ENGLISH PROFESSOR Height 167.6 cm (5' 6 ) 04/22/2023 9:32 AM ENGLISH PROFESSOR Body Mass Index 27.55 04/22/2023 9:32 AM ENGLISH PROFESSOR Plan of Treatment Upcoming Encounters Date Type Department Care Team (Late st Contact Info) Description 10/09/2024 1:30 PM CDT Office Visit [facility] - Dermatology [address] [place] [address] [place] [id number] Samuel Chaney PA-C [address] [place] [address] 11/27/2024 2:15 PM CDT Office Visit [facility] - Ophthalmology [address] [place] [address], [place] [address] Walter Powell MD [address] [place] [address] [place] [address] Health Maintenance Due Date Last [...] ENDOSCOPY, COLON, SCREENING Routine 04/22/2023 11:14 AM ENGLISH PROFESSOR MAMMO BILAT SCREENING Routine 04/20/2017 10:40 AM ENGLISH PROFESSOR Visit for screening mammogram COMPREHENSIVE METABOLIC PANEL STAT 08/27/2014 2:21 PM CDT from Last 3 Months or Most Recently Relevant to Health Maintenance Results * ENDOSCOPY, COLON, SCREENING (04/22/2023 11:14 AM ENGLISH PROFESSOR) Report Endoscopy POC Endoscopy Department Report __ [...] entire procedure. Procedure Code(s): --- Professional --- 39934, Colonoscopy, flexible; with biopsy, single or multiple Diagnosis Code(s): --- Professional --- Z12.11, Encounter for screening for malignant neoplasm of colon D12.8, Benign neoplasm of rectum K64.8, Other hemorrhoids CPT copyright 2021 [employer]. All rights reserved. The codes documented in this report are preliminary and upon weapons officer review may be revised to meet current compliance requirements. Hussain Melvin MD 04/22/2023 12:11:21 PM Note Initiated On: 04/22/2023 11:14 AM Number of Addenda: 0 [facility] [address] [place] [address] [facility] 04/22/2023 11:1 4 AM ENGLISH PROFESSOR us Hussain Melvin MD GI PROCEDURE ORDERABLES Edite d Result - Final [facility] * CHAMP SCREENING DIGITAL IMAGE BILATERAL G0202 (04/20/2017 10:40 AM ENGLISH PROFESSOR) Anatomical Region Laterality Modality Breast Bilateral Mammography 04/25/2017 9:03 AM ENGLISH PROFESSOR Impressions 04/25/2017 10:33 AM ENGLISH PROFESSOR No mammographic evidence of malignancy in either breast. ASSESSMENT: BIRADS Category 1: Negative mammogram. RECOMMENDATION: Bilateral screening mammogram in one year. Thank you for allowing us to participate in the care of your patient. [facility] Breast [facility] utilizes [employer] as a reminder system to notify patients of their next recommended mammogram. I, Nelly Saldivar, have personally reviewed the images and I agree with this report. Narrative 04/25/2017 10:33 AM ENGLISH PROFESSOR EXAMINATION: Digital screening mammogram on 04/20/2017. Low-dose [...] have been scanned as a document/letter in [employer] electronic medical record (media tab). Please note [...] CDT) BUN 11 7 - 26 mg/dL [facility] Creatinine 0.5(L) 0.6 - 1.2 mg/dL [facility] Sodium 142 136 - 145 mmol/L [facility] Potassium 3.4(L) 3.5 - 4.5 mmol/L [facility] Chloride 103 98 - 107 mmol/L [facility] CO2 24 22 - 29 mmol/L [facility] Glucose 84 70 - 115 mg/dL [facility] Calcium 9.9 8.4 - 10.2 mg/dL [facility] Protein Total 9.4(H) 6.0 - 8.3 g/dL [facility] Albumin 4.0 3.4 - 5.0 g/dL [facility] Bilirubin Total 0.8 0.2 - 1.2 mg/dL [facility] Alkaline Phosphatase 88 40 - 150 Units/L [facility] ALT 22 0 - 55 Units/L [facility] AST 24 5 - 34 Units/L [facility] Anion Gap 18 8 - 18 [facility] BUN/Creatinine Ratio 22 7 - 23 [facility] Osmolality Calculated 278 270 - 300 mOsm/kg [facility] Albumin/Globulin Ratio 0.7(L) 1.1 - 2.3 [facility] eGFR >60 >60 mL/min/1.7 3 m2 [facility] Blood specimen (specimen) BLOOD SPECIMEN / Unknown 08/27/2014 2:21 PM CDT 08/27/2014 2:26 PM CDT us Sharon Swenson MD LAB - CHEMISTRY ORDERABLES Final Result [facility] [address] [place], [place] [address] [phone] from Last 3 Months or Most Recently Relevant to Health Maintenance Care Teams Technology Officer Relationship Specialty Start Date End Date Unknown, Provider PCP - General 04/10/24 de Yolette, [place] [address] [place] [address] Cloth Winder 04/20/17
--- OUTSIDE RECORDS SUMMARY | 2024-10-05 12:44 | XMS_ITS | Encounter Summary ---
Author Organization [facility] Healthcare Address [address] [place] [address] Care Team Providers Care Business Planning Analyst Name Role Phone No, Physician Primary Care Provider [phone] Khushbu Gutierres MD Unavailable Encounter Details Date Type Department Care Team (Late st Contact Info) Description 02/22/2023 Orders Only [facility] Health Information Management [address] [place] [address] Scanning, Provider Social History Tobacco Use Types [...] on file Legal Sex Female 9:18 AM DIRECTOR IMAGING Gender Identity Not on file Sexual Orientation [...] on filedocumented in this encounter Care Teams Business Planning Analyst Relationship Specialty Start Date End Date No, Physician PCP - General 08/25/18 Khushbu Gutierres MD 06/02/18 documented as of this encounter
--- OUTSIDE RECORDS SUMMARY | 2024-10-05 12:44 | XMS_ITS | Clinical Summary ---
Author Organization [employer] [facility] Address [address] [place] [address] Phone Care Team Providers Care Subassemblies Wirer Name Role Phone Unavailable Primary Care Provider [...] Advance Directives For more information, please contact: [phone] * Full Code (Latest Code Status on File) Date Activated Date Inactivated Comments 12/12/2015 12:59 PM 12/12/2015 4:47 PM
--- NOTE | 2024-10-05 12:54 | ED.WOUNDLAC ---
HPI - Wound/Laceration General Chief Complaint: Wound/Laceration Stated Complaint: wound Time Seen by Provider: 10/05/24 12:03 History of Present Illness HPI narrative: Patient is a 59-year-old female who presents ER with a wound to her left back. Began having itching and discomfort 1 week ago. She then developed a pimple and then developed redness and some oozing. She had a scab that came off and there was some blood today. She has some additional red areas going along her chest wall. No fevers or chills or sweats. Patient has history of varicella as a child. Related Data Allergies Allergy/AdvReac Type Severity Reaction Status Date / Time No Known Allergies Allergy Verified 10/05/24 11:01 Review of Systems Constitutional: Constitutional: Reports no additional constitutional complaints Musculoskeletal: Musculoskeletal: Reports no additional musculoskeletal complaints Integumentary/Breasts: Skin/Breast: Reports system reviewed and no additional complaints, except as docu PMFSH Past Medical History Medical History Rheumatoid arthritis Social History Social History (Updated 03/04/22 @ 21:09 by Jovanni Valencia MD) Smoking status: Never smoker Alcohol intake: never Substance use: never Gender identity (if verbalized by the patient): Female Exam Narrative: GENERAL: Well-appearing, well-nourished, and in no acute distress. HEAD: Normocephalic, atraumatic. ENT: Mucous membranes moist. EXTREMITIES: Normal range of motion. No edema. SKIN: Warm, dry. 4 cm x 2 cm induration left posterior torso with central area of granulation from drainage and wound breakdown. There are additional smaller areas of induration moving laterally across lateral aspect of the torso toward superior aspect of the breast. These are mobile lesions. No fluctuance. No pustules noted. Seems dermatomal over T3/T4. NEURO: Alert and oriented x3. PSYCH: Normal mood and affect. Course Course Emergency Course: Suspect zoster with secondary infection. Will treat with Bactrim and Valtrex. Follow-up with PCP. Vital Signs Vital signs: Vital Signs Temperature 97.9 F 10/05/24 10:58 Pulse Rate 88 10/05/24 10:58 Respiratory Rate 18 10/05/24 10:58 Blood Pressure 159/74 H 10/05/24 10:58 Pulse Oximetry 100 10/05/24 10:58 Oxygen Delivery Room Air 10/05/24 10:58 Temperature 97.9 F 10/05/24 10:58 Pulse Rate 88 10/05/24 10:58 Respiratory Rate 18 10/05/24 10:58 Blood Pressure 159/74 H 10/05/24 10:58 Pulse Oximetry 100 10/05/24 10:58 Oxygen Delivery Room Air 10/05/24 10:58 Discharge Plan Discharge Clinical Impression: Zoster, Cellulitis Patient Disposition: Home Condition: Stable Instructions: Shingles (ED), Cellulitis (ED) Additional Instructions: Return ER if you have fever 100.4? F, you can not keep down food or water, you lose consciousness, or you have additional concerns. Patient Language: Swedish Prescriptions: New valacyclovir [Valtrex] 1 gram tablet 1,000 mg PO TID Qty: 21 0RF sulfamethoxazole-trimethoprim [Bactrim DS] 800-160 mg tablet 1 tablet PO Q12H Qty: 14 0RF No Action diphenhydramine HCl [Benadryl] 25 mg capsule 25 mg PO BID PRN (Reason: allergic reaction) Qty: 10 0RF famotidine [Pepcid] 20 mg tablet 20 mg PO BID Qty: 10 0RF prednisone 20 mg tablet 20 mg PO DAILY Qty: 5 0RF epinephrine 0.3 mg/0.3 mL auto-injector 0.3 mg IM Q5-15M PRN (Reason: anaphylaxis) Qty: 2 0RF Rx Instructions: do not exceed 3 doses per episode Follow-up/Referrals: UNKNOWN,DOCTOR [Primary Care Provider] - 1 Week
== END 2024-10-05 13:19 | disposition home or self-care (01) ==
PROVIDERS: Emergency Provider Emergency Medicine
DX: B02.9 Zoster without complications (principal); L03.312 Cellulitis of back [any part except buttock and flank]
CPT/HCPCS: 99283